=== PATIENT | female | born 1970 | race Caucasian/White ===

== ENCOUNTER 2019-06-19 20:42 | Emergency (ER) | payer BC ==
[~2019-06-19] VITALS: Ht 172.7 cm; Wt 69.9 kg
[2019-06-19 21:12] VITALS: Ht 172.7 cm; Wt 69.9 kg
[2019-06-20 02:30] VITALS: BP 134/77
== END 2019-06-20 02:30 | disposition home or self-care (01) ==
LOC: ED 20:42
DX: S52.572A Other intraarticular fracture of lower end of left radius, initial encounter for closed fracture (principal); W01.0XXA Fall on same level from slipping, tripping and stumbling without subsequent striking against object, initial encounter; Y93.01 Activity, walking, marching and hiking; Y92.89 Other specified places as the place of occurrence of the external cause; Y99.8 Other external cause status
CPT/HCPCS: J2001; J3490; Q0092; Q0162